=== PATIENT | female | born 1995 | race Caucasian/White ===

== ENCOUNTER 2021-03-30 16:26 | Emergency (ER) | payer OTHER ==
[~2021-03-30] VITALS: Ht 175.3 cm; Wt 77.1 kg
[2021-03-30] MEDS ORDERED: IV NS 0.9% 500 ML BAG IV ONE (17:30)
[2021-03-30] MEDS ORDERED: ONDANSETRON HCL/PF 4 MG/2 ML VIAL IVP ONE (17:30)
[2021-03-30 17:45] LABS: BASOPHILS % (AUTO) 0.3 % (0.0-2.0); EOSINOPHILS % (AUTO) 0.6 % (0.0-6.0); HEMATOCRIT 37 % (33-45); HEMOGLOBIN 11.7 g/dL (11.5-14.8); LYMPHOCYTES # (AUTO) 2.2 K/uL (0.8-4.8); LYMPHOCYTES % (AUTO) 19.8 % (20.0-44.0); MEAN CORPUSCULAR HGB CONC 31 g/dl (31.0-36.0); MEAN CORPUSCULAR VOLUME 82 fL (82-100); MONOCYTES # (AUTO) 0.3 K/uL (0.1-1.30); MONOCYTES % (AUTO) 2.8 % (2.0-12.0); NEUTROPHILS # (AUTO) 8.7 K/uL (1.8-8.9); NEUTROPHILS % (AUTO) 76.5 % (43.0-81.0); PLATELET COUNT (AUTO) 547 K/uL (150-450); RED BLOOD CELL COUNT(AUTO) 4.55 MIL/uL (4.0-5.2); WHITE BLOOD COUNT (AUTO) 11.3 K/uL (4.3-11.0)
[2021-03-30 18:16] LABS: ALANINE AMINOTRANSFERASE 13 U/L (12-78); ALBUMIN 3.6 g/dL (3.4-5.0); ALKALINE PHOSPHATASE 85 U/L (46-116); ASPARTATE AMINOTRANSFERASE 14 U/L (15-37); BILIRUBIN,DIRECT 0.1 mg/dL (0.0-0.2); BILIRUBIN,TOTAL 0.3 mg/dL (0.2-1.0); CALCIUM, SERUM 8.9 mg/dL (8.5-10.1); CARBON DIOXIDE 23 mmol/L (21-32); CHLORIDE 104 mmol/L (98-107); CREATININE 0.8 mg/dL (0.6-1.3); GLUCOSE 103 mg/dL (74-106); POTASSIUM 3.7 mmol/L (3.5-5.1); SODIUM SERUM 139 mmol/L (136-145); TOTAL PROTEIN, SERUM 7.8 g/dL (6.4-8.2); UREA NITROGEN, BLOOD 15 mg/dL (7-18)
[2021-03-30 18:17] LABS: ACETAMINOPHEN < 2 ug/ml (10-30); ALCOHOL, BLOOD < 3 mg/dL (0-0)
[2021-03-30 18:47] LABS: BILIRUBIN,URINE Negative (NEGATIVE); COLOR,URINE YELLOW (YELLOW); LEUKOCYTE ESTERASE ,URINE Negative (NEGATIVE); NITRITE, URINE Negative (NEGATIVE); PROTEIN,URINE Negative (NEGATIVE); UGLUCOSE Negative (NEGATIVE); UROBILINOGEN,URINE 0.2 EU/dL (0.2)
[2021-03-30] MEDS ORDERED: IOHEXOL-350 100 ML VIAL IV ONE (18:47)
[2021-03-30] MEDS ORDERED: IV NS 0.9% 250 ML IV ONE (18:47)
[2021-03-30 18:51] LABS: BACTERIA,URINE Rare /HPF (None Seen); RBC,URINE NONE SEEN /HPF (0-2); SQUAMOUS EPITHELIAL CELL,UR Few /HPF (None Seen); WBC,URINE NONE SEEN /HPF (0-3)
[2021-03-30] MEDS ORDERED: ONDANSETRON HCL/PF 4 MG/2 ML VIAL ONE (18:59)
[2021-03-30] MEDS ORDERED: ONDA4TAB5 PO (19:48)
--- NOTE | 2021-03-30 20:02 | NUR ---
[facility] PHONE -[facility]
--- NOTE | 2021-03-30 20:06 | NUR ---
PT IS MEDICALLY STABLE FOR D/C PER MD, IV removed. Catheter intact and site benign. Pressure and 4x4 applied to site. No bleeding noted.Patient discharged to home in stable condition. Written and verbal after care instructions given. Patient verbalizes understanding of instruction.
[2021-03-30 23:35] VITALS: BP 133/88
[2021-03-31] MEDS ORDERED: ONDA4TAB11 PO (21:41)
== END 2021-03-30 20:06 | disposition home or self-care (01) ==
LOC: ER 17:37
DX: R06.02 Shortness of breath (principal); R07.89 Other chest pain; R11.2 Nausea with vomiting, unspecified
CPT/HCPCS: 36415; 71045; 71275; 80048; 80076; 80143; 80307; 80320; 81001; 84484; 84703; 85025; 85378; 93005; 96361; 96374; 99285; J2405; J7040; J7050; Q9967; G0480

== ENCOUNTER 2021-03-31 19:35 | Emergency (ER) | payer OTHER ==
[~2021-03-31] VITALS: Ht 175.3 cm; Wt 81.6 kg
[~2021-03-31 19:35] MED LIST: ONDA4TAB5 PO
[2021-03-31 20:32] LABS: BASOPHILS % (AUTO) 0.4 % (0.0-2.0); HEMATOCRIT 37 % (33-45); LYMPHOCYTES # (AUTO) 2.7 K/uL (0.8-4.8); LYMPHOCYTES % (AUTO) 28.1 % (20.0-44.0); MEAN CORPUSCULAR HGB CONC 33 g/dl (31.0-36.0); MEAN CORPUSCULAR VOLUME 82 fL (82-100); MONOCYTES # (AUTO) 0.1 K/uL (0.1-1.30); MONOCYTES % (AUTO) 1.5 % (2.0-12.0); NEUTROPHILS # (AUTO) 6.6 K/uL (1.8-8.9); PLATELET COUNT (AUTO) 543 K/uL (150-450); RED BLOOD CELL COUNT(AUTO) 4.51 MIL/uL (4.0-5.2); WHITE BLOOD COUNT (AUTO) 9.6 K/uL (4.3-11.0)
[2021-03-31 20:48] LABS: CARBON DIOXIDE 25 mmol/L (21-32); CHLORIDE 104 mmol/L (98-107); CREATININE 0.8 mg/dL (0.6-1.3); GLUCOSE 84 mg/dL (74-106); POTASSIUM 3.7 mmol/L (3.5-5.1); SODIUM SERUM 139 mmol/L (136-145); UREA NITROGEN, BLOOD 16 mg/dL (7-18)
[2021-03-31] MEDS ORDERED: ONDANSETRON HCL/PF 4 MG/2 ML VIAL ONE ×2 (20:53→23:12)
[2021-03-31 20:54] LABS: ALANINE AMINOTRANSFERASE 15 U/L (12-78); ALBUMIN 3.8 g/dL (3.4-5.0); ALCOHOL, BLOOD < 3 mg/dL (0-0); ALKALINE PHOSPHATASE 91 U/L (46-116); ASPARTATE AMINOTRANSFERASE 8 U/L (15-37); BILIRUBIN,DIRECT 0.1 mg/dL (0.0-0.2); BILIRUBIN,TOTAL 0.3 mg/dL (0.2-1.0); TOTAL PROTEIN, SERUM 7.9 g/dL (6.4-8.2)
[2021-03-31 20:59] LABS: ACETAMINOPHEN 0 ug/ml (10-30)
[2021-03-31] MEDS ORDERED: IV NS 0.9% 1,000 ML IV ONE (21:00)
[2021-03-31] MEDS ORDERED: ONDANSETRON HCL/PF - ER 4 MG/2 ML VIAL IV ONE (21:00)
--- NOTE | 2021-03-31 21:06 | NUR ---
PT DETOX REHAB FACILITY -[facility]- CALLED (JENNA) FOR UPDATES PLEASE CALL [phone]
[2021-03-31] MEDS ORDERED: ONDA4TAB11 PO (21:41)
--- NOTE | 2021-03-31 22:20 | NUR ---
PT DENIES SI/HI. ADMITS THAT SHE IS TRYING TO BE ADMITTED TO REHAB AND WAS USING WHIPPETS EARLIER TODAY. PT STATES THAT EARLIER TODAY AFTER USING WHIPPETS SHE WAS NAUSEAS AND HAD EPISODES OF VOMITING. CURRENTLY PATIENT FEELS SLIGHTLY NAUSEAUS BUT NO VOMITING EPISODES IN ER.
[2021-03-31] MEDS ORDERED: ONDANSETRON HCL/PF 4 MG/2 ML VIAL IV ONE (23:00)
[2021-03-31 23:23] VITALS: BP 122/71
--- NOTE | 2021-03-31 23:23 | NUR ---
Patient discharged to home in stable condition. Written and verbal after care instructions given. Patient verbalizes understanding of instruction and RX. Pt ambulated out of ED. VSS.
--- NOTE | 2021-04-01 11:56 | NUR ---
SS Note: FELIBERTO received call from Carolina from [facility] [phone] who wanted to verify if pt. had received psychiatric clearance to return to their facility. This FELIBERTO called and spoke with nurse, Priyanka who provided more insight to situation and this SW completed chart review. FELIBERTO explained to Carolina that per EMR, pt. was medically cleared and because pt. denied SI/HI and there were not psych symptoms, MD did not feel it necessary to call crisis for evaluation. Pt. met no criteria for psych or crisis consult. Carolina expressed understanding. SW will be available as needed.
== END 2021-03-31 23:23 | disposition home or self-care (01) ==
LOC: ER 19:36
DX: K22.6 Gastro-esophageal laceration-hemorrhage syndrome (principal); R11.2 Nausea with vomiting, unspecified; Z02.89 Encounter for other administrative examinations; Z79.899 Other long term (current) drug therapy
CPT/HCPCS: 36415; 71045; 80048; 80076; 80143; 80320; 85025; 96361; 96374; 96376; 99284; J2405 ×3; G0480